=== PATIENT | female | born 1955 | race Caucasian/White ===

== ENCOUNTER → 2016-08-28 | Outpatient (CLI) | payer OTHER ==
[~2016-08-28] MED LIST: ATORVASTATIN CA20 MG PO; BENADRYL25 M1 PO; CLEOCIN150 MG PO; DESYREL50 MG; DESYREL50 MG PO; E-MYCIN250 MG PO; FAMOTIDINE PO; FENOFIBRATE48 MG PO; FISH OIL 1,0001 CA2 PO; FISH OIL 1,001000 M1 PO; LIPITOR20 MG PO; LISINOPRIL-HCTZ1 T18 PO; LISINOPRIL-HCTZ1 T19 PO; LORTAB 7.51 TAB 7.5/ PO; MEDROL PO; NO MEDICATIONS; OMEPRAZOLE40 M1 PO; PENICILLIN PO; PHENERGAN PR; PREDNISONE PO; SERTRALINE HCL50 MG PO; VICODIN 5/1 TAB 5/50 PO; VITAMIN D250000 UNIT PO; VITAMIN D50000 UNIT PO; ZOLOFT50 MG PO; ZYRTEC PO
--- NOTE | ~2016-08-28 | CR63 ---
[facility] A Service of [facility] RADIOLOGY TEXT RESULTS PATIENT: SIS DARBY LOCATION: [facility] : 53 UNIT #: [id number] AGE: [address]: Geni Sanders MD SEX: F ORDER DR: [id number] [facility] [address] [place], [place] [address] [id number] O MR#: [id number] Acc #: [id number] NAME: SIS DARBY : 1955 SEX: F STUDY DATE/TIME: 08/28/2016 12:08 UNIT: [facility] ROOM: STUDY DESCRIPTION: CR Chest 2 View Attending Physician: Geni Sanders M.D. Referring Physician: Geni Sanders M.D. Ordering Physician: Geni Sanders M.D. Primary Care Physician: [facility] MEDICAL IMAGING REPORT This report is preliminary unless electronic signature is present EXAM PA and lateral chest. INDICATION Cough for 6 months. FINDINGS PA and lateral views of the chest were obtained. The heart size and vascularity are normal and the lungs are clear and the bones are normal. IMPRESSION No active disease. Dictated by... Magen Walker M.D. THIS IS AN ELECTRONICALLY VERIFIED REPORT Magen Walker M.D. at 08/28/2016 3:27 PM ANGELES/june TD: 08/28/2016 14:19 JOB #: [id number] MEDICAL IMAGING REPORT Page 1 of 1 COPY
== END | disposition home or self-care (01) ==
LOC: CRAD 11:49
DX: R05 Cough (principal)
CPT/HCPCS: 71020

== ENCOUNTER 2016-12-29 07:32 | Emergency (ER) | payer OTHER ==
[~2016-12-29] VITALS: Ht 167.6 cm; Wt 66.2 kg
== END 2016-12-29 08:50 | disposition home or self-care (01) ==
LOC: CFTX 07:32 → CED 07:32 → CFTX 08:07
DX: S61.211A Laceration without foreign body of left index finger without damage to nail, initial encounter (principal); I10 Essential (primary) hypertension; W45.8XXA Other foreign body or object entering through skin, initial encounter; Y93.89 Activity, other specified; Y92.69 Other specified industrial and construction area as the place of occurrence of the external cause
CPT/HCPCS: 29130; 99283